=== PATIENT | female | born 1980 | race Caucasian/White ===

== ENCOUNTER 2017-05-22 09:35 | Emergency (ER) | payer MEDICAID ==
[2017-05-22 09:53] VITALS: TEMP 97.9
--- NOTE | 2017-05-22 10:27 | EDPHY ---
H & P Stated Complaint: fall snowboarding tues/+ loc now with continued carter/nausea l shoulder/arm/le Time Seen by Provider: 05/22/17 10:27 - Personal History LMP (Females 10-55): 8-14 Days Ago Current Tetanus/Diphtheria Vaccine: Yes - Medical/Surgical History Hx Asthma: No Hx Chronic Respiratory Disease: No Hx Diabetes: No Hx Cardiac Disease: No Hx Renal Disease: No Hx Cirrhosis: No Hx Alcoholism: No Hx HIV/AIDS: No Hx Splenectomy or Spleen Trauma: No Other PMH: denies - Social History Smoking Status: Never smoked Constitutional: Initial Vital Signs Temperature (C) 36.6 C 05/22/17 09:50 Heart Rate 56 L 05/22/17 09:50 Respiratory Rate 17 05/22/17 09:50 Blood Pressure 135/76 H 05/22/17 09:50 O2 Sat (%) 97 05/22/17 09:50 O2 Delivery Mode Room Air Allergies/Adverse Reactions: acetaminophen [From Percocet] Allergy (Verified 05/22/17 09:49) oxycodone [From Percocet] Allergy (Verified 05/22/17 09:49) Home Medications: Medication Instructions Recorded Ondansetron 05/22/17 Medical Decision Making - Diagnostics Imaging Results: Imaging Impressions Head CT 05/22/17 10:36 Impression: No acute intracranial findings. Findings discussed with Mark Singh MD 05/22/2017 at 11:09. ED Course/Re-evaluation: CHIEF COMPLAINT: Head injury, nausea, photophobia HISTORY OF PRESENT ILLNESS: 37-year-old female who fell snowboarding a couple of days ago. She lost consciousness. She slept for almost 36 hr after she states. She has persistent nausea without vomiting. She has persistent photophobia. She has persistent headache which is worsened by light and noise. She denies any neurologic deficits. She denies any coordination issues. She was helmeted. She is also complaining of some pain at the base of her neck and little bit of pain or left trapezius. REVIEW OF SYSTEMS: A 10 point review of systems was performed and is negative with the exception of the elements mentioned in the history of present illness. PHYSICAL EXAM: HR, BP, O2 Sat, RR. Temp noted General Appearance: Alert, well hydrated, appropriate, and non-toxic appearing. Head: Atraumatic without scalp tenderness or obvious injury Eyes: Pupils equal, round, reactive to light and accommodation, EOMI, no trauma , no injection. Ears: Clear bilaterally, no perforation, normal landmarks Nose: Atraumatic, no rhinorrhea, clear. Throat: There is no erythema or exudates, no lesions, normal tonsils, mucus membranes moist. Neck: Supple, 2+ carotid upstroke, nontender, no lymphadenopathy. Respiratory: No retractions, no distress, no wheezes, and no accessory muscle use. Lungs are clear to auscultation bilaterally. Cardiovascular: Regular rate and rhythm, no murmurs, rubs, or gallops. Bilateral carotid, radial, dorsalis pedis, and posterior tibial pulses intact. Good capillary refill all extremities. Gastrointestinal: Abdomen is soft, nontender, non-distended, no masses, no rebound, no guarding, no peritoneal signs. Musculoskeletal: No motor deficits in the left arm but I do suspect potential C7-T1 disc herniation with little bit of sensory deficit down the left arm. Otherwise, Normal active ROM of all extremities, atraumatic. Neurological: Alert, appropriate, and interactive. The patient has normal DTRs and non-focal cranial nerves, motor, sensory, and cerebellar exam. Skin: No rashes, good turgor, no nodules on palpation. Past medical history: Noncontributory Past surgical history: Noncontributory Family history: Noncontributory Social history: Single, employed, does not abuse tobacco drugs or alcohol DIAGNOSTICS/PROCEDURES/CRITICAL CARE TIME: Study: CT of the head without contrast Indication: Head injury Results: CT scan of the head was obtained. The results of the study are normal. The study was read by the radiologist, . I viewed the images myself on the PACS system. DIFFERENTIAL DIAGNOSIS: The differential diagnosis for the patient's trauma included but was not limited to intracranial injury, long bone and pelvic bone fractures, spinal injury, intra-abdominal injury, and intra-thoracic injury. MEDICAL DECISION MAKING: This patient has a post concussive syndrome. I believe she may have met criteria for head CT when this 1st happened several days ago but she is probably far enough out from the injury that head CT is not warranted. However, she would like head CT to put her mind at ease. I did discuss the risk benefit ratio of radiation versus my low pre test probability. 11:15 AM- Per Leth[place], CT does not indicate acute findings. Symptoms are likely due to concussion. I feel she can be released with concussion protocol. She agrees to this course of action. Follow-up instructions and return precautions given. Departure - Departure Disposition: Home, Routine, Self-Care Clinical Impression: Post concussion syndrome Condition: Good Instructions: Post Concussion Syndrome (ED) Additional Instructions: 1. "Brain rest" - Limit screen time while symptoms are present. This includes phones, computers, TV, video games, etc. 2. Physical rest while symptoms are present. Avoid any activities that could lead to a repeat head injury for at least two weeks or longer if symptoms persist. Ex. no contact sports, skiing, bicycling. 3. Slowly advance activities as tolerated. If you begin to experience headaches , confusion, sensitivity to light, nausea, or other worsening of symptoms you need to reduce your activities. Take time off from classes if you are able to. 4. Follow up with Dr. Quick, head injury specialist, for symptoms that persist for more than 10 days. 5. Return to the ED for severe pain, inability to walk, weakness or numbness on one side of your body, or other worsening of condition. Referrals: Myles Cedeno [Primary Care Provider] - As per Instructions Doris Quick MD [Medical Doctor] - As per Instructions
[2017-05-22 11:25] VITALS: BP 122/76; PULSE 68; RESP 18; O2SAT 95
== END 2017-05-22 11:26 | disposition home or self-care (01) ==
DX: S09.90XA Unspecified injury of head, initial encounter (principal); F07.81 Postconcussional syndrome; V00.311A Fall from snowboard, initial encounter; Y99.8 Other external cause status; Y93.23 Activity, snow (alpine) (downhill) skiing, snowboarding, sledding, tobogganing and snow tubing

== ENCOUNTER → 2018-06-19 | Outpatient (CLI) | payer MEDICAID ==
[~2018-06-19] MED LIST: IOPAMIDOL (ISOVUE-300) 100 ML BTL ONE
== END ==
LOC: FIMAGING 13:01
PROVIDERS: ATTEND Surgery
DX: R19.00 Intra-abdominal and pelvic swelling, mass and lump, unspecified site (principal); R10.31 Right lower quadrant pain; N20.0 Calculus of kidney
CPT/HCPCS: Q9967